=== PATIENT | male | born 1995 | race Caucasian/White ===

== ENCOUNTER 2020-02-28 06:48 | Day surgery (SDC) | payer OTHER ==
[2020-02-28] MEDS ORDERED: Lactated Ringers 1,000 ML IV ONE (07:13)
[2020-02-28] MEDS ORDERED: CEFAZOLIN 2 GM-D5W BAG** 2 GM/50 ML ML IV ONE (07:13)
[2020-02-28] MEDS ORDERED: CEFAZOLIN 2 GM-D5W BAG** 2 GM/50 ML ML IV SCH (07:30)
[2020-02-28] MEDS ORDERED: Lactated Ringers 1,000 ML IV SCH (07:30)
[2020-02-28] MEDS ORDERED: XYLOCAINE 1% HCL 20 ML MDV ONE (07:53)
[2020-02-28] MEDS ORDERED: Sensorcaine 0.25% 10 ML ONE (07:53)
[2020-02-28] MEDS ORDERED: DIPRIVAN 200 MG/20 ML IV ONE (08:46)
[2020-02-28] MEDS ORDERED: SUBLIMAZE 250 MCG/5 ML ONE (08:46)
[2020-02-28] MEDS ORDERED: Versed 2 MG/2 ML Injection ONE (08:46)
[2020-02-28] MEDS ORDERED: Xylocaine-Mpf 2% 5 Ml Vial ONE (08:46)
[2020-02-28] MEDS ORDERED: Quelicin Fliptop 200 MG/10 ML ONE (09:19)
[2020-02-28] MEDS ORDERED: Zemuron 100 MG/10 ML ONE (09:35)
[2020-02-28] MEDS ORDERED: BRIDION 200MG/2ML IV ONE (09:58)
[2020-02-28] MEDS ORDERED: TORAdol 30 mg Injection ONE (11:34)
--- NOTE | 2020-02-28 11:34 | XRAY ---
Indication: Right ankle arthroscopy. Intraoperative fluoroscopy was provided for 1 minute 22 seconds. 4 digital spot images submitted for interpretation demonstrates excision of os trigonum. Correlate with intraoperative findings/report.
[2020-02-28] MEDS ORDERED: Zofran 4 MG/2 ML VIAL ONE (11:43)
[2020-02-28] MEDS ORDERED: SUBLIMAZE 100 MCG/2 ML ONE (11:52)
--- NOTE | 2020-02-28 13:12 | XRAY ---
1 minute and 22 seconds fluoroscopy time in surgery for right ankle arthroscopy.
[2020-02-28 13:59] VITALS: BP 136/83; PULSE 89; O2SAT 100
--- NOTE | 2020-03-02 10:06 | OP ---
SURGERY DATE: 02/28/2020 0918 PREOPERATIVE DIAGNOSES: 1) Painful right ankle. 2) Os trigonum of the right ankle. 3) Posterior impingement syndrome. POSTOPERATIVE DIAGNOSES: 1) Painful right ankle. 2) Os trigonum of the right ankle. 3) Posterior impingement syndrome. PROCEDURES: 1) Posterior diagnostic arthroscopy and synovectomy. 2) Removal of os trigonum of the right ankle. SURGEON: Calvin Napier DPM. WILDLIFE REFUGE MANAGER: None. ANESTHESIA: General. HEMOSTASIS: None. ESTIMATED BLOOD LOSS: 400 cc. MATERIALS: 2-0 Vicryl undyed on an SH needle and 3-0 Ethicon nylon on an SH needle. INJECTABLES: 10 cc of 0.5% Marcaine plain injected postoperatively. INDICATION FOR SURGERY: Matt came into my clinic with his mother approximately two weeks ago for concern regarding a long standing pain to the ankle of Matt. He states this pain has been long standing and going on for a number of months and they have seen multiple providers who have provided all types of conservative therapy including but not limited to nonsteroidal anti-inflammatories, corticosteroids, splinting and bracing. The patient comes to the clinic with x-rays having already been taken and MRI readily available. On clinical exam, he experienced significant pain with manipulation of the posterior ankle called the "toggle test" which is typically indicative of impingement. He also has significant pain in his ankle when his foot is in a plantar flexed position and his hallux is also in a flexed position which is indicative of a posterior impingement syndrome. On inspection of the x-rays, there was a significant os trigonum that was relatively large in size. The MRI that was taken showed a sagittal plane view of the MRI with T2 imaging demonstrating an increased signal surrounding the large bone that measured approximately 9 mm in length, 6 mm in width and 2 cm in height. At this time due to the patient's long standing history and having seen multiple providers, the family was eager to move forward with intervention at this time in order to eliminate the issue. This has effected Matt's activities of daily living due to the fact that he is in a significant amount of pain with working and daily life. The patient and the mother understands all risks, complications and benefits of the procedure that were explained to them and the consent is signed and in the patient's chart. It is with that we decided to move forward and schedule for operative intervention. DESCRIPTION OF PROCEDURE AND FINDINGS: After adequate assessment by the anesthesia team, the patient was brought into the OR. He was assessed by the anesthesia team and put under general anesthesia on the bed prior to rotating the patient into the prone position on the OR bed. At this time attention was directed to the right lower extremity where the lower extremity was prepped and draped in sterile typical fashion and the lower extremity of the right ankle was lowered onto the field. Prior to incision, landmarks were marked out including the lateral malleolus, Achilles tendon and the medial malleolus in order to gain insight into adequate portal placement. A 20 cc syringe of sterile saline on an 18 gauge needle was injected to insufflate the [place] triangle in the posterior right ankle in order to gain access and visualization. At this time a stab incision was made on the posterior-lateral aspect of the Achilles tendon so as not to violate the Achilles tendon itself. The stab incision was carried to the level of the subcutaneous layer and then a mosquito clamp was used to dissect anteriorly in the direction of the interdigital web space between digits one and two. Once the clamp touched the bone it was exchanged for an [employer] NanoScope trocar and shaft pointing in the same direction. At this level I was able to assess the ankle joint and the subtalar joint almost immediately. The capsule was extremely thin. However, there was significant amount of synovitis. At this time the posterior-medial portal was made using the same technique of vertical stab incision made posterior-medial at the level of the lateral malleolus. Again, I was pointing a mosquito clamp in the direction towards the arthroscope shaft at approximately a 90 angle while still trying to maintain the trajectory of the first and second toe web space. Once I saw the mosquito clamp touch the shaft of the arthroscope, it was used as a guide for the clamp to move in an anterior direction of the ankle joint by touching the arthroscope shaft until it reached the bone. After withdrawing the arthroscope slightly, there was direct visualization of the mosquito clamp and a 3 mm full-radius shaver was introduced and the synovectomy portion of the procedure began. At this time there was significant amount of adipose tissue within the Kager triangle which was cleaned out. Any of the joint capsule that was exposed was removed which was frayed and destroyed due to the impingement. At this time, I was able to recognize the subtalar joint and the posterior talofibular ligament (PTFL) ligament. The subtalar joint at this point was inspected under arthroscopic visualization and deemed to be adequate. I was able to visualize the posterior tibiofibular and the talofibular ligaments at this time which appeared to be intact, however, fraying and thin in nature. At this time within the procedure, I deemed it too difficult with the NanoScope materials to arthroscopically remove the posterior talar process so the decision to go to an open procedure was made. At this time, the incision at the arthroscope were withdrawn and an incision was made to the posterior-lateral aspect of the Achilles tendon so as not to violate the paratenon of the Achilles tendon. At this time combination of sharp and blunt dissection was utilized and able to get down to the level of the posterior talus. At this time there was visualization of the flexor hallucis longus (FHL) tendon which remained protected throughout the procedure. In my dissection I was also careful to keep a look out for the sural nerve which tends to course over the lateral border of the Achilles tendon in this general area however it was not encountered. It was also very important to me that I did not put excessive amount of retraction on the lateral border of the soft tissue due to prevention of sural neuritis in this instance. At this time attention was then directed under fluoroscopic imaging to the area of interest where the os trigonum was located. At this point a reduction clamp was utilized to grasp the os trigonum being careful not to violate the neurovascular bundle or the flexor hallucis longus tendon. At this point a pair of blunt scissors was utilized to remove any of the soft tissue attachments to the os trigonum. A 0.5 inch curved osteotome was utilized to place behind the os trigonum with respects to not violate the posterior facet of the subtalar joint or the talar body. At this point under fluoroscopic guidance, the os trigonum was resected from its proximal attachment to the posterior aspect of the talus again with respects to protecting the flexor hallucis longus and the neurovascular bundle throughout the entirety of the procedure. The remaining soft tissue attachments were dissected off of the os trigonum and it was removed in toto which was confirmed under fluoroscopic and direct visualization. A rasp was then utilized to smooth down the surface of the removed os trigonum. All that remained was some soft tissue which was rongeured out and deemed to be smooth. The flexor hallucis longus tendon was put through its range of motion and deemed to be intact without any complications. Neurovascular bundle was also intact throughout the entirety of the procedure. At this time a fluff was performed of copious amounts of sterile saline. All active bleeders were then cauterized and Vancomycin powder 1 gm was introduced into the wound in order to prevent a postoperative infection. At this time a 2-0 nylon was utilized to coapt the skin edges subcutaneously. 3-0 nylon was then utilized to close the skin edges and avert them in a horizontal mattress-type fashion. Betadine paint was utilized to cover the incision sites and a nylon was utilized to close the posterior medial portal entry for the arthroscope, this was covered in Betadine. The wound was covered with Adaptic and a dressing consisting of 4x4, Kerlix, 4 inch and 6 inch LUISA, cast padding, posterior splint and again 4 inch and 6 inch LUISA to hold the foot in a dorsiflexed position in order to avoid any issues with contracture of the wound. The patient was returned to the postoperative anesthesia care unit with vital signs stable and vascular status intact. He handled the anesthesia as well as the procedure without complication. Postoperative orders as follows: 1) Nonweight bearing to the right lower extremity. 2) Keep dressing clean, dry and intact until postoperative visit #1. 3) [place] 5/325 mg for pain every four to six hours dispense 30. 4) Ambulation with crutches okay once accessed by physical therapy postoperatively. 5) Return to office in one weeks' time for reassessment and re-evaluation.
== END 2020-02-28 14:15 | disposition home or self-care (01) ==
LOC: SDC 06:48
PROVIDERS: ATTEND Podiatrist Foot & Ankle Surgery
DX: M25.571 Pain in right ankle and joints of right foot (principal); Q68.8 Other specified congenital musculoskeletal deformities; M25.871 Other specified joint disorders, right ankle and foot
CPT/HCPCS: 28120; 29894; 73600; 76000; J0330; J0690; J1885; J2250; J2405; J2704; J3010

== ENCOUNTER 2022-05-17 09:43 | Day surgery (SDC) | payer OTHER ==
[2022-05-17] MEDS ORDERED: Marcaine Mpf 0.5% Vial 30 Ml IJ ONE (09:44)
[2022-05-17] MEDS ORDERED: EXPAREL 133 MG/10 ML VIAL IJ ONE (09:44)
[2022-05-17] MEDS ORDERED: Versed 2 MG/2 ML Injection ONE (09:57)
[2022-05-17] MEDS ORDERED: CEFAZOLIN 2 GM-D5W BAG** 2 GM/50 ML ML IV ONE (09:57)
[2022-05-17] MEDS ORDERED: Transderm Scop 1.5MG Patch ONE (09:57)
[2022-05-17] MEDS ORDERED: Lactated Ringers 1,000 ML IV ONE ×2 (09:58→13:03)
[2022-05-17] MEDS: Transderm Scop 1.5MG Patch TOP PRN (10:01)
[2022-05-17] MEDS: Lactated Ringers 1,000 ML IV SCH (10:01)
[2022-05-17] MEDS: CEFAZOLIN 2 GM-D5W BAG** 2 GM/50 ML ML IV SCH (10:01)
[2022-05-17] MEDS: Versed 2 MG/2 ML Injection IV PRN (11:11)
[2022-05-17] MEDS ORDERED: Pre-Attached Lta Kit TP ONE (11:43)
[2022-05-17] MEDS ORDERED: DIPRIVAN 200 MG/20 ML IV ONE (11:44)
[2022-05-17] MEDS ORDERED: Decadron 4 MG INJ ONE (11:45)
[2022-05-17] MEDS ORDERED: Zofran 4 MG/2 ML VIAL ONE ×2 (11:45→14:19)
[2022-05-17] MEDS ORDERED: Xylocaine-Mpf 2% 5 Ml Vial ONE (11:45)
[2022-05-17] MEDS ORDERED: Quelicin Fliptop 200 MG/10 ML ONE (11:45)
[2022-05-17] MEDS ORDERED: SUBLIMAZE 100 MCG/2 ML ONE ×2 (11:50→13:13)
[2022-05-17] MEDS ORDERED: XYLOCAINE 1% HCL 20 ML MDV ONE ×2 (12:09)
[2022-05-17] MEDS ORDERED: BRIDION 200MG/2ML IV ONE ×2 (12:36→13:25)
[2022-05-17] MEDS ORDERED: Zemuron 100 MG/10 ML ONE (13:18)
--- NOTE | 2022-05-17 13:37 | XRAY ---
Indication: Removal left ankle os trigonum. Intraoperative fluoroscopy provided for 1 minute 21 seconds. 6 digital spot images submitted for interpretation ultimately demonstrates excision of os trigonum. Correlate with intraoperative findings/report.
--- NOTE | 2022-05-17 13:44 | XRAY ---
1 minute and 21 seconds fluoroscopy time in surgery for bone removal left ankle.
[2022-05-17 15:35] VITALS: O2SAT 96
[2022-05-17 15:56] VITALS: BP 132/84; PULSE 83
--- NOTE | 2022-05-18 09:14 | OP ---
SURGERY DATE/TIME: 05/17/2022 1211 PREOPERATIVE DIAGNOSES: 1) Os trigonum left ankle. 2) Posterior ankle impingement syndrome. 3) Left ankle pain. 4) Flexor hallucis longus tenosynovitis. POSTOPERATIVE DIAGNOSES: 1) Os trigonum left ankle. 2) Posterior ankle impingement syndrome. 3) Left ankle pain. 4) Flexor hallucis longus tenosynovitis. PROCEDURES: 1) Excision of the os trigonum. 2) Flexor hallucis longus tenosynovectomy. SURGEON: Calvin Napier DPM. LAMINATION TECHNICIAN: None. ANESTHESIA: General plus a postoperative popliteal block. ESTIMATED BLOOD LOSS: Less than 10 cc. MATERIALS: 4-0 Monocryl, 3-0 Nylon. INJECTABLES: See anesthesia report for details. HEMOSTASIS: Thigh tourniquet set to 350 mm of [place] for 30 minutes total tourniquet time. INDICATION FOR PROCEDURE: Matt is a very pleasant 27-year-old male who two years ago was seen by my service for the same issue to the right lower extremity. The patient did have os trigonum removed to the right side and within no time the patient had virtually no pain. The patient is experiencing similar symptoms at this time. He has failed conservative therapy as prescribed to him and prior incident. The patient wishes to proceed with surgical intervention at this time. The patient understands all risks, complications and benefits of the procedure including but not limited to infection, hematoma, seroma, possibility of delayed skin healing, nonskin healing, possibility of residual pain and swelling and possible need for further surgery at a later date. No guarantees were provided as to the outcome of the surgical intervention. Plenty of time was allowed for the patient to ask questions which were answered to the patient's apparent satisfaction. It is with that we decided to proceed. DESCRIPTION OF PROCEDURE AND FINDINGS: The patient was brought into the OR and placed on the OR table in the supine position. The patient was placed under general anesthesia on the cart and a well-padded thigh tourniquet was applied to the patient's left lower extremity. General anesthesia was administered and the patient was then transferred to the operative table in the prone position. At this time the left lower extremity was prepped and draped in the typical fashion and lowered onto the surgical field. At this time under fluoroscopy, the os trigonum was identified. A small 3 cm incision was made at the posterior lateral aspect of the Achilles tendon in order to gain access. Careful dissection was made utilizing at 15 blade and dissection scissors in order not to damage the sural nerve which runs closely in this territory. The flexor hallucis longus was identified. Any soft tissues surrounding the flexor hallucis longus was resected and the tendon was exposed. Tenosynovium was removed from the flexor hallucis longus at this time. This made the os trigonum significantly more visible and resection of the os trigonum was performed. At this time the os trigonum was excised in a piecemeal fashion making sure that no prominences remained and checking under fluoroscopy intermittently to assess if there were any residual components of the os trigonum left. At this time copious amounts of sterile saline were utilized to flush the surgical site. 4-0 Monocryl was utilized to coapt the subcutaneous edges in a simple buried-type fashion. Horizontal mattress-type with 3-0 Nylon were utilized to coapt the incision in an everted-type fashion. At this time a dressing consisting of Betadine, Adaptic, 4x4, Kerlix and LUISA was applied to the left lower extremity. The patient was then provided a popliteal block for pain control following the procedure. The tourniquet was let down prior to closure at 25 minutes total tourniquet time. The patient was then returned to the postoperative anesthesia care unit with vital signs stable and vascular status intact. He handled the anesthesia as well as the procedure without significant complications. Postoperative orders as indicated in the patient's discharge chart.
== END 2022-05-17 16:00 | disposition home or self-care (01) ==
LOC: SDC 09:43
PROVIDERS: ATTEND Podiatrist Foot & Ankle Surgery
DX: Q68.8 Other specified congenital musculoskeletal deformities (principal); M25.872 Other specified joint disorders, left ankle and foot; M25.572 Pain in left ankle and joints of left foot; M65.872 Other synovitis and tenosynovitis, left ankle and foot
CPT/HCPCS: 73610; 76000; 76937; J0330; J0690; J1100; J2250; J2405; J2704; J3010; A9270-GY